=== PATIENT | male | born 1965 | race Caucasian/White ===

== ENCOUNTER → 2024-03-06 | Day surgery (SDC) | payer OTHER ==
[2024-03-06 11:54] VITALS: BP 134/86; TEMP 97.5
== END ==
LOC: CSHCCL 10:41
PROVIDERS: ATTEND Specialist
PROC: B201YZZ Plain Radiography of Multiple Coronary Arteries using Other Contrast (ICD-10-PCS; principal; 2024-03-06)
PROC: 4A023N7 Measurement of Cardiac Sampling and Pressure, Left Heart, Percutaneous Approach (ICD-10-PCS; principal; 2024-03-06)
DX: I25.119 Atherosclerotic heart disease of native coronary artery with unspecified angina pectoris (principal); I10 Essential (primary) hypertension; E78.5 Hyperlipidemia, unspecified; K21.9 Gastro-esophageal reflux disease without esophagitis; E11.9 Type 2 diabetes mellitus without complications; E78.2 Mixed hyperlipidemia; Z79.84 Long term (current) use of oral hypoglycemic drugs; Z79.899 Other long term (current) drug therapy; Z79.890 Hormone replacement therapy; Z87.891 Personal history of nicotine dependence
CPT/HCPCS: 80048; 85025; 85610; 92928; 93458; 99152; 99153; C1725; C1726; C1760; C1769; C1874; C1887; C1894; C9600; J0461; J0583; J1644; J2001; J2250; J3010